=== PATIENT | female | born 1995 | race Caucasian/White ===

== ENCOUNTER 2023-03-29 00:56 | Emergency (ER) | payer OTHER ==
[~2023-03-29] VITALS: Ht 157.5 cm; Wt 68.0 kg
[2023-03-29 01:37] LABS: *BILIRUBIN,URIN NEGATIVE (NEGATIVE); *BLOOD, URINE 2+ (NEGATIVE); *COLOR,URINE YELLOW (YELLOW); *KETONES,URINE NEGATIVE (NEGATIVE); *PROTEIN,URINE TRACE (NEGATIVE); *UROBILINOGEN,URINE 0.2 E.U./dl (NORMAL); LEUKOCYTE ESTERASE ,URINE 3+ (NEGATIVE); NITRITE, URINE NEGATIVE (NEGATIVE); UGLUCOSE NEGATIVE (NEGATIVE)
[2023-03-29 01:44] LABS: *CLARITY,URINE SLIGHTLY CLOUDY (CLEAR)
[2023-03-29 01:45] LABS: *URINE HCG, QUAL NEGATIVE (NEGATIVE)
[2023-03-29 01:56] LABS: BACTERIA,URINE MODERATE /HPF (NONE SEEN); RBC,URINE TNTC /HPF (0-3); SQUAMOUS EPITHELIAL CELL,UR MODERATE /HPF (NONE SEEN); WBC,URINE TNTC /HPF (0-3)
[2023-03-29] MEDS ORDERED: PHEN-704 PO (02:34)
[2023-03-29] MEDS ORDERED: CEPH500T PO (02:34)
[2023-03-29] MEDS ORDERED: NITR-84 PO (02:34)
[2023-03-29] MEDS ORDERED: CEFTRIAXONE 1 G VIAL ONE (02:38)
[2023-03-29] MEDS ORDERED: LIDOCAINE HCL 1% 20 ML VIAL ONE (02:39)
[2023-03-29] MEDS ORDERED: PHENAZOPYRIDINE HCL 100 MG TABLET ONE (02:39)
[2023-03-29] MEDS ORDERED: NITROFURANTOIN/NITROFURAN MAC 100 MG CAPSULE PO ONE ×2 (02:39→02:45)
[2023-03-29] MEDS ORDERED: CEFTRIAXONE 1 G VIAL IM ONE (02:45)
[2023-03-29] MEDS ORDERED: PHENAZOPYRIDINE HCL 100 MG TABLET PO ONE (02:45)
[2023-03-29 02:51] VITALS: BP 141/85; O2SAT 98
== END 2023-03-29 02:51 | disposition home or self-care (01) ==
LOC: ER 01:04
DX: N12 Tubulo-interstitial nephritis, not specified as acute or chronic (principal)
CPT/HCPCS: 99283; 81001; 84703; 96372; J0696; J3490; A4663

== ENCOUNTER 2023-08-07 16:48 | Emergency (ER) | payer OTHER ==
[~2023-08-07] VITALS: Ht 157.5 cm; Wt 64.4 kg
[~2023-08-07 16:48] MED LIST: CEPH500T PO; NITR-84 PO; PHEN-704 PO
[2023-08-07 17:04] VITALS: O2SAT 98
[2023-08-07] MEDS ORDERED: IBUPROFEN 400 MG TABLET ONE (17:23)
[2023-08-07] MEDS ORDERED: IBUPROFEN 400 MG TABLET PO ONE (17:30)
[2023-08-07] MEDS ORDERED: CYCL5TAB PO (17:36)
[2023-08-07] MEDS ORDERED: IBUP-1953 PO (17:36)
[2023-08-07] MEDS ORDERED: LIDO15CR11 TP (17:37)
[2023-08-07] MEDS ORDERED: LIDO30AD10 TP (17:37)
== END 2023-08-07 17:25 | disposition home or self-care (01) ==
LOC: ER 16:51
DX: M54.50 Low back pain, unspecified (principal); Z79.899 Other long term (current) drug therapy
CPT/HCPCS: A4606; A4663

== ENCOUNTER 2024-08-20 17:27 | Emergency (ER) | payer OTHER ==
[~2024-08-20] VITALS: Ht 157.5 cm; Wt 65.8 kg
[~2024-08-20 17:27] MED LIST changes: +CYCL5TAB PO; +IBUP-1953 PO; +LIDO15CR11 TP; +LIDO30AD10 TP
[2024-08-20 18:47] LABS: BASOPHILS % (AUTO) 0.2 % (0.0-2.0); EOSINOPHILS # (AUTO) 0.2 K/uL (0.0-0.7); EOSINOPHILS % (AUTO) 1.5 % (0.0-7.0); HEMOGLOBIN 13.2 g/dL (10.9-14.3); LYMPHOCYTES # (AUTO) 1.6 K/uL (0.8-4.8); LYMPHOCYTES % (AUTO) 13.4 % (20.5-51.5); MEAN CORPUSCULAR HEMOGLOBIN 30.2 uug (24.7-32.8); MEAN CORPUSCULAR HGB CONC 34 g/dL (32.3-35.6); MONOCYTES # (AUTO) 0.5 K/uL (0.1-1.30); MONOCYTES % (AUTO) 4.5 % (0.0-11.0); NEUTROPHILS # (AUTO) 9.7 K/uL (1.8-8.9); NEUTROPHILS % (AUTO) 80.4 % (38.5-71.5); PLATELET COUNT (AUTO) 257 K/uL (179-408); RED BLOOD CELL COUNT(AUTO) 4.38 MIL/uL (3.63-4.92); WHITE BLOOD COUNT (AUTO) 12.1 K/uL (3.8-11.8)
[2024-08-20 18:50] LABS: DIFFERENTIAL COMMENT 1
[2024-08-20 18:55] LABS: CARBON DIOXIDE 28 mmol/L (21-32); CHLORIDE 102 mmol/L (98-107); CREATININE 0.7 mg/dL (0.6-1.3); GLUCOSE 95 mg/dL (74-106); POTASSIUM 3.5 mmol/L (3.5-5.1); SODIUM SERUM 142 mmol/L (136-145); UREA NITROGEN, BLOOD 14 mg/dL (7-18)
[2024-08-20 19:01] LABS: *BILIRUBIN,URIN NEGATIVE (NEGATIVE); *BLOOD, URINE NEGATIVE (NEGATIVE); *COLOR,URINE YELLOW (YELLOW); *KETONES,URINE NEGATIVE (NEGATIVE); *PROTEIN,URINE 1+ (NEGATIVE); *UROBILINOGEN,URINE 0.2 E.U./dl (NORMAL); LEUKOCYTE ESTERASE ,URINE NEGATIVE (NEGATIVE); NITRITE, URINE NEGATIVE (NEGATIVE); UGLUCOSE NEGATIVE (NEGATIVE)
[2024-08-20 19:01] LABS: ALANINE AMINOTRANSFERASE 16 U/L (14-59); ALKALINE PHOSPHATASE 69 U/L (50-136); ASPARTATE AMINOTRANSFERASE 16 U/L (15-37); BILIRUBIN,DIRECT 0.1 mg/dL (0.0-0.2); BILIRUBIN,TOTAL 0.4 mg/dL (0.2-1.0); LIPASE 46 U/L (16-77); TOTAL PROTEIN, SERUM 8.2 g/dL (6.4-8.2)
[2024-08-20 19:14] LABS: PREGNANCY TEST SERUM QUAN < 1 miul/L (0-6)
[2024-08-20 19:22] LABS: *CLARITY,URINE SLIGHTLY CLOUDY (CLEAR)
[2024-08-20 19:35] LABS: BACTERIA,URINE FEW /HPF (NONE SEEN); RBC,URINE NONE SEEN /HPF (0-3); SQUAMOUS EPITHELIAL CELL,UR FEW /HPF (NONE SEEN); URINE AMORPHOUS URATE MODERATE /HPF; WBC,URINE 0-3 /HPF (0-3)
[2024-08-20] MEDS ORDERED: FAMO-132 PO (20:06)
[2024-08-20] MEDS ORDERED: FAMOTIDINE 20 MG TABLET ONE (20:12)
[2024-08-20] MEDS: FAMOTIDINE 20 MG TABLET PO ONE (20:15)
[2024-08-20 20:16] VITALS: BP 109/60; O2SAT 99
== END 2024-08-20 20:16 | disposition home or self-care (01) ==
LOC: ER 17:27
DX: K29.70 Gastritis, unspecified, without bleeding (principal); F45.8 Other somatoform disorders; R10.13 Epigastric pain; R10.2 Pelvic and perineal pain
CPT/HCPCS: 36415; 74018; 83690; 85025; A4606; A4663

== ENCOUNTER → 2024-11-09 | Emergency (ER) | payer OTHER ==
[~2024-11-09] VITALS: Ht 157.5 cm; Wt 65.8 kg
[~2024-11-09] MED LIST changes: +FAMO-132 PO; +FLUT1BLS15 INH
[2024-11-09 23:29] VITALS: BP 130/73; O2SAT 96
== END | disposition home or self-care (01) ==
LOC: ER 21:47
DX: Z77.120 Contact with and (suspected) exposure to mold (toxic) (principal); Z59.19 Other inadequate housing; Z79.51 Long term (current) use of inhaled steroids; Z20.822 Contact with and (suspected) exposure to COVID-19
CPT/HCPCS: A4606; A4663